=== PATIENT | male | born 2005 | race African-American/Black ===

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

== ENCOUNTER 2024-11-02 10:17 | Emergency (ER) | payer SELFPAY ==
[2024-11-02 10:19] VITALS: BP 137/71; PULSE 69; RESP 18; TEMP 36.6; O2SAT 100
[2024-11-02 12:13] LABS: Basophils Percent Auto 0.3 % (0.2-1.2); Hematocrit 49.6 % (42.0-52.0); Hemoglobin 15.6 g/dL (14.0-18.0); Immature Granulocyte Absolute 0.02 K/mm3 (0.00-0.031); Immature Granulocyte Percent A 0.3 % (0-0.5); Lymphocytes Absolute Auto 0.79 K/mm3 (0.9-3.2); Lymphocytes Percent Auto 9.9 % (18.3-44.2); Mean Corpuscular HGB Conc 31.5 g/dl (32-36); Mean Corpuscular Hemoglobin 26.4 pg (26-34); Mean Corpuscular Volume 84.1 fl (80-100); Mean Platelet Volume 9.6 fl (7.4-10.4); Monocytes Absolute Auto 0.2 K/mm3 (0.1-0.6); Neutrophils Absolute Auto 6.9 K/mm3 (1.3-6.7); Neutrophils Percent Auto 86.5 % (45.5-73.1); Platelet Count Result 293 k/mm3 (150-375); Red Cell Distribution Width 14.2 % (11.5-14.5)
[2024-11-02 12:17] VITALS: BP 113/71; PULSE 65; RESP 15; TEMP 36.4; O2SAT 100
--- NOTE | 2024-11-02 12:18 | PC.NURSE ---
pt unable to provide urine sample at this time. declining straight cath.
[2024-11-02 12:24] LABS: Alanine Aminotransferase 21 U/L (6-50); Albumin Level 5.3 g/dL (3.5-5.1); Alkaline Phosphatase 76 U/L (38-126); Anion Gap 13 mmol/L (4-12); Aspartate Amino Transferase 31 U/L (17-59); Bilirubin,Total 0.8 mg/dL (0.2-1.3); Blood Urea Nitrogen 8 mg/dL (9-20); Calcium 10.4 mg/dL (8.4-10.2); Carbon Dioxide 25 mmol/L (22-30); Chloride 105 mmol/L (98-107); Estimated CRCL calculation 115 ml/min; Estimated Glomerular Filt Rate > 60; Glucose 129 mg/dL (65-110); Lipase 57 U/L (23-300); Potassium 4.3 mmol/L (3.4-5.0); Sodium 143 mmol/L (137-145); Total Protein 9.2 g/dL (6.3-8.2)
[2024-11-02] MEDS: ONDANSETRON INJ 4 MG/2 ML VIAL IV PUSH (12:33)
[2024-11-02] MEDS: SODIUM CHLORIDE 0.9% IV 1,000 ML 999 ML IV CONT (12:38)
--- NOTE | 2024-11-02 12:57 | ED.NAVMDI ---
HPI - Nausea/Vomiting/Diarrhea General Chief complaint: Nausea/Vomiting/Diarrhea Stated complaint: N/V Time Seen by Provider: 11/02/24 12:07 History of Present Illness HPI Narrative: Pt presents with numerous episodes of vomiting since 0700 this morning. Pt denies diarrhea. Pt is sweating and chilled but not running temp. Pt denies abdominal pain or diarrhea. Pt is regular cannabis user but has not had vomiting before. Related Data Allergies Allergy/AdvReac Type Severity Reaction Status Date / Time No Known Allergies Allergy Verified 11/02/24 10:22 Review of Systems Review of Systems: All systems reviewed & are unremarkable except as noted in HPI and below PMFSH Past Medical History Medical History Distal radius fracture, right No acute medical problems Family History Family History Other Asthma Cerebrovascular accident Hypertension Social History Social History Smoking status: Never smoker Alcohol intake: never Substance use: never Substance use type: does not use Living arrangements: with family Occupation/Education: student Gender identity (if verbalized by the patient): Male Exam Const: General: healthy appearing and no acute distress Nutritional Appearance: well nourished Orientation/consciousness: patient oriented x3 Limitations: no limitations HENMT: Mouth: Yes Normal oral and palatal mucosa present Chest: Chest palpation & inspection: normal inspection of the chest Resp: Effort & Inspection: normal respiratory effort Auscultation: clear to auscultation bilaterally Cardio: Rate: regular rate Rhythm: regular rhythm GI: GI Palp: Yes Soft to palpation and No Tenderness to palpation present (GI) Auscultation: normal bowel sounds Back/Spine/Pelvis: Back: no CVA tenderness Skin: General skin exam: normal color Rashes: no rashes Wounds: no wounds Other: diaphoretic Neuro: General: patient oriented x3, moves all extremities, no meningeal signs, no focal motor deficits and CN's II-XI intact bilaterally Speech: normal speech Extrem: General: normal to inspection and no clubbing, cyanosis or edema Psych: Mental Status: mental status grossly normal Affect: normal affect Attitude: cooperative Course Vital Signs Vital signs: Vital Signs Temperature 97.8 F 11/02/24 10:19 Pulse Rate 69 11/02/24 10:19 Respiratory Rate 18 11/02/24 10:19 Blood Pressure 137/71 11/02/24 10:19 Pulse Oximetry 100 11/02/24 10:19 Oxygen Delivery Room Air 11/02/24 10:19 Temperature 97.6 F 11/02/24 12:17 Pulse Rate 63 11/02/24 15:24 Respiratory Rate 17 11/02/24 15:24 Blood Pressure 125/57 L 11/02/24 15:24 Pulse Oximetry 100 11/02/24 15:24 Oxygen Delivery Room Air 11/02/24 10:19 MDM - Nausea/Vomiting/Diarrhea MDM Narrative Medical decision making narrative: Pt is vomiting and having chills and sweats. most likely gastritis but could be cannabis induced hyperemsis. will get labs and fluids and zofran and recheck. still some nausea after zofran. will try compazine. nausea controlled home on compazine. talked about potential for cannabis hyperemesis, so if has more vomiting after smoking then he needs to stop. verbalized understanding. Lab Data 11/02/24 12:00 11/02/24 12:00 Labs: Lab Results 11/02/24 11/02/24 Range/Units 12:00 13:38 WBC 8.0 (4.5-10.0) K/mm3 RBC 5.90 (4.6-6.20) M/mm3 Hgb 15.6 (14.0-18.0) g/dL Hct 49.6 (42.0-52.0) % MCV 84.1 (80-100) fl MCH 26.4 (26-34) pg MCHC 31.5 L (32-36) g/dl RDW 14.2 (11.5-14.5) % Plt Count 293 (150-375) k/mm3 MPV 9.6 (7.4-10.4) fl Immature Gran % (Auto) 0.3 (0-0.5) % Neut % (Auto) 86.5 H (45.5-73.1) % Lymph % (Auto) 9.9 L (18.3-44.2) % [place] % (Auto) 3.0 (2.6-8.5) % Eos % (Auto) 0.0 (0-4.4) % Baso % (Auto) 0.3 (0.2-1.2) % Lymph # (Auto) 0.79 L (0.9-3.2) K/mm3 [place] # (Auto) 0.2 (0.1-0.6) K/mm3 Eos # (Auto) 0.0 (0-0.3) K/mm3 Baso # (Auto) 0.0 (0.0-0.1) K/mm3 Abs Immat Gran (auto) 0.02 (0.00-0.031) K/mm3 Absolute Neuts (auto) 6.9 H (1.3-6.7) K/mm3 Absolute Nucleated RBC 0.000 (0.0-0.012) K/mm3 Nucleated RBC % 0.0 (0.0-0.2) % Sodium 143 (137-145) mmol/L Potassium 4.3 (3.4-5.0) mmol/L Chloride 105 (98-107) mmol/L Carbon Dioxide 25 (22-30) mmol/L Anion Gap 13 H (4-12) mmol/L BUN 8 L (9-20) mg/dL Creatinine 1.02 (0.7-1.3) mg/dL Estim Creat Clear Calc 115 ml/min Estimated GFR > 60 (59 - ) Glucose 129 H (65-110) mg/dL Calcium 10.4 H (8.4-10.2) mg/dL Total Bilirubin 0.8 (0.2-1.3) mg/dL AST 31 (17-59) U/L ALT 21 (6-50) U/L Alkaline Phosphatase 76 (38-126) U/L Total Protein 9.2 H (6.3-8.2) g/dL Albumin 5.3 H (3.5-5.1) g/dL Lipase 57 (23-300) U/L Urine Color Yellow (Yellow) Urine Appearance Clear (Clear) Urine pH 8.5 (5.0-9.0) Ur Specific [place] 1.025 (1.001-1.035) Urine Protein 1+ H (Negative) mg/dL Urine Glucose (UA) Negative (Negative) mg/dL Urine Ketones 3+ H (Negative) mg/dL Ur Blood (Man) Negative (Negative) Urine Nitrate Negative (Negative) Urine Bilirubin Negative (Negative) Urine Urobilinogen 1.0 (<2.0) mg/dL Leukocyte Esterase Rfl Negative (Negative) AMY/UL Urine RBC 0-2 (0-2) /hpf Urine WBC 0-5 (0-3) /hpf Ur Squamous Epith Cells None seen (Few) /hpf Urine Bacteria None seen /hpf Urine Casts 3-5 Discharge Plan Discharge Clinical Impression: Gastroenteritis Patient Disposition: Home Condition: Improved Instructions: Antibiotic Form, Gastroenteritis (ED), Acute Nausea and Vomiting (ED) Patient Language: Belizean Prescriptions: New prochlorperazine maleate [Compazine] 10 mg tablet 10 mg PO Q8H PRN (Reason: nausea and vomiting) Qty: 10 0RF No Action ibuprofen 800 mg tablet 800 mg PO TID PRN (Reason: pain) Qty: 20 0RF Follow-up/Referrals: UNKNOWN,DOCTOR [Primary Care Provider] -
[2024-11-02 13:52] LABS: Add Urine Microscopic? YES; Appearance Urine Clear (Clear); Bacteria Urine None Seen /hpf; Bilirubin Urine Negative (Negative); Blood Urine Negative (Negative); Color Urine Yellow (Yellow); Glucose Urine UA Negative (Negative); Ketones Urine 3+ mg/dL (Negative); Leukocyte Esterase Ur Negative LEU/UL (Negative); Nitrate Urine Negative (Negative); Protein Urine 1+ mg/dL (Negative); RBC Urine 0-2 /hpf (0-2); Specific Grav Ur 1.025 (1.001-1.035); Squamous Epithelial Cell Urine None Seen /hpf (Few); WBC Urine 0-5 /hpf (0-3); pH Urine 8.5 (5.0-9.0)
[2024-11-02] MEDS: PROCHLORPERAZINE EDISYLATE 10 MG/2 ML VIAL IV PUSH (14:00)
[2024-11-02 14:04] VITALS: BP 120/60; PULSE 60; RESP 18; O2SAT 100
[2024-11-02 15:24] VITALS: BP 125/57; PULSE 63; RESP 17; O2SAT 100
== END 2024-11-02 15:29 | disposition home or self-care (01) ==
PROVIDERS: Emergency Medicine; Emergency Provider Emergency Medicine
DX: K52.9 Noninfective gastroenteritis and colitis, unspecified (principal); F12.90 Cannabis use, unspecified, uncomplicated
CPT/HCPCS: 36415; 80053; 81001; 83690; 85025; 96361; 96374; 96375; 99284; J0780; J2405; J7030